=== PATIENT | male | born 1950 | race Caucasian/White ===

== ENCOUNTER 2016-08-23 11:01 | Emergency (ER) | payer MEDICARE, OTHER | END 2016-08-23 11:45 | disposition home or self-care (01) | LOC: ER 11:01 | DX: T20.10XA Burn of first degree of head, face, and neck, unspecified site, initial encounter (principal); T22.10XA Burn of first degree of shoulder and upper limb, except wrist and hand, unspecified site, initial encounter; T31.0 Burns involving less than 10% of body surface; T59.91XA Toxic effect of unspecified gases, fumes and vapors, accidental (unintentional), initial encounter | CPT/HCPCS: 90471 ==